=== PATIENT | female | born 1970 | race Caucasian/White ===

== ENCOUNTER 2019-03-14 04:57 | Emergency (ER) | payer SELFPAY ==
[2019-03-14] MEDS ORDERED: HYDROmorphone 1 MG/ML Syringe IVPUSH ONE ×3 (05:06→06:33)
[2019-03-14] MEDS ORDERED: Sodium Chloride 0.9% 10 ML Syringe FLUSH PRN (05:09)
[2019-03-14] MEDS ORDERED: Diphtheria,Pertussis(Acell),Tetanus Vaccine 0.5 ML Syringe IM ONE (05:10)
[2019-03-14] MEDS ORDERED: Amoxicillin/Clavulanate K 875-125 MG Tab PO ONE (05:12)
[2019-03-14] MEDS ORDERED: Ondansetron 4 MG/2 ML SDV IVPUSH ONE ×2 (05:33→06:39)
[2019-03-14 06:45] VITALS: BP 152/87
--- NOTE | 2019-03-14 07:01 | EDM.PDOC ---
ED HPI GENERAL MEDICAL PROBLEM - General Chief Complaint: Skin Complaint Stated Complaint: dog bites Time Seen by Provider: 03/14/19 05:10 Source of Information: Reports: Patient History Limitations: Reports: No Limitations - History of Present Illness INITIAL COMMENTS - FREE TEXT/NARRATIVE: Pt. was attacked by her own dogs this evening. She states that the dog was fighting with another dog and she was trying to get then . She sustained a large laceration to her L breast as well as large puncture wounds to her L forearm and upper arm area. She is not sure of her tetanus status. She states that the dogs have not had their rabies shots. Law enforcement has been contacted and the animals are currently quarantined with plans to put both animals down today and the information regarding the rabies status will be forwarded to ER. Pt. is a smoker. Denies any other pertinent past medical history. She has not had any problems with anesthesia in the past. Generalized Pain Score (Numeric/FACES): 10 - Related Data Allergies Allergy/AdvReac Type Severity Reaction Status Date / Time No Known Allergies Allergy Verified 03/14/19 04:58 Home Meds: Home Meds . [No Known Home Meds] 03/14/19 [History] Past Medical History - Past Surgical History GI Surgical History: Reports: Appendectomy Female Surgical History: Reports: Section Musculoskeletal Surgical History: Reports: Arthroscopic Knee Social & Family History - Tobacco Use Smoking Status *Q: Current Status Unknown ED ROS GENERAL - Review of Systems Review Of Systems: See Below Constitutional: Reports: No Symptoms HEENT: Reports: No Symptoms Respiratory: Reports: No Symptoms Cardiovascular: Reports: No Symptoms Endocrine: Reports: No Symptoms GI/Abdominal: Reports: No Symptoms : Reports: No Symptoms Skin: Reports: No Symptoms Neurological: Reports: No Symptoms Psychiatric: Reports: No Symptoms Hematologic/Lymphatic: Reports: No Symptoms Immunologic: Reports: No Symptoms ED EXAM, SKIN/RASH Exam: See Below Exam Limited By: No Limitations General Appearance: Alert, Anxious Head: Atraumatic, Normocephalic Neck: Normal Inspection, Supple, Non-Tender, Full Range of Motion Respiratory/Chest: Other (superficial scratches to L lateral chest and back. Large partial avulsion/skin tear of L areola measuring 4x3 cm. ) Peripheral Pulses: 4+: Radial (L), Radial (R) GI/Abdominal: Soft, Non-Tender, No Organomegaly, No Distention, No Abnormal Bruit, No Mass, Pelvis Stable (Female) Exam: Deferred Rectal (Female) Exam: Deferred Back Exam: Other (See above. No midline neck or back pain) Extremities: Other (2x1 cm puncture/laceration to L medial elbow. 1 cm laceration to L wrist, 1 cm laceration to forarm, and 1 cm laceration to L posterior upper arm. Numerous smaller superficial lacerations, abrasions, and contusions, all isolated to the L upper extremity.) Neurological: Alert, Oriented, CN II-XII Intact, Normal Cognition, Normal Gait, Normal Reflexes, No Motor/Sensory Deficits Psychiatric: Normal Affect, Normal Mood Skin: Other (see HPI) Course - Vital Signs Last Recorded V/S: Last Vital Signs Temp 35.3 C 03/14/19 06:44 Pulse 69 03/14/19 06:44 Resp 14 03/14/19 06:44 BP 152/87 H 03/14/19 06:44 Pulse Ox 99 03/14/19 06:44 - Orders/Labs/Meds Orders: Active Orders 24 hr Category Date Time Status Vaccines to be Administered [RC] PER UNIT ROUTINE Care 03/14/19 05:10 Active Chest 2V [CR] Stat Exams 03/14/19 05:08 Taken Wrist Comp Min 3V Lt [CR] Stat Exams 03/14/19 05:06 Taken Sodium Chloride 0.9% [Saline Flush] Med 03/14/19 05:09 Active 10 ml FLUSH ASDIRECTED PRN Peripheral IV Insertion Adult [OM.PC] Routine Oth 03/14/19 05:09 Ordered Medication Orders Sodium Chloride (Saline Flush) 10 ml FLUSH ASDIRECTED PRN PRN Reason: Keep Vein Open Meds: Medications Generic Name Dose Route Start Last Admin Trade Name Freq PRN Reason Stop Dose Admin Sodium Chloride 10 ml 03/14/19 05:09 Saline Flush FLUSH ASDIRECTED PRN Keep Vein Open Discontinued Medications Generic Name Dose Route Start Last Admin Trade Name Freq PRN Reason Stop Dose Admin Amoxicillin/Clavulanate Potassium 1 tab 03/14/19 05:12 03/14/19 05:48 Augmentin 875 Mg/125 Mg PO 03/14/19 05:13 1 tab ONETIME ONE Administration Diphtheria/Tetanus/Acell Pertussis 0.5 ml 05/15/19 05:10 03/14/19 05:46 Adacel IM 03/14/19 05:11 0.5 ml .ONCE ONE Administration Hydromorphone HCl 1 mg 03/14/19 05:06 03/14/19 05:09 Dilaudid IVPUSH 03/14/19 05:07 1 mg ONETIME ONE Administration Hydromorphone HCl 1 mg 03/14/19 05:37 03/14/19 05:40 Dilaudid IVPUSH 03/14/19 05:38 1 mg ONETIME ONE Administration Hydromorphone HCl 1 mg 03/14/19 06:33 03/14/19 06:47 Dilaudid IVPUSH 03/14/19 06:34 1 mg ONETIME ONE Administration Ondansetron HCl 4 mg 03/14/19 05:33 03/14/19 05:38 Zofran IVPUSH 03/14/19 05:34 4 mg ONETIME ONE Administration Ondansetron HCl 4 mg 03/14/19 06:39 03/14/19 06:46 Zofran IVPUSH 03/14/19 06:40 4 mg ONETIME ONE Administration - Radiology Interpretation Free Text/Narrative:: radiographs of the L wrist and chest were negative for acute pathology - Re-Assessments/Exams Free Text/Narrative Re-Assessment/Exam: IV access was established. She was given a total of 3 mg of dilaudid IV for pain control. Tdap was updated. The lacerations to the arm were anesthetized with a total of 8 ml of 1% lidocaine to facilitate irrigation. There was areas of devitalized subcutaneous tissue that were excised from the lacerations. They were dressed with telfa and 4x4. The breast laceration was dressed with moist 4x4 and secured with kerlix in anticipation of her undergoing surgical debridement and closure. She was given augmentin 875mg PO and was also given zofran 4mg IV for nausea and vomiting twice. Departure - Departure Time of Disposition: 07:18 Disposition: DC/Tfer to [facility] 02 Clinical Impression: Dog bite - Discharge Information Referrals: PCP,Unobtain [Primary Care Provider] - Forms: ED Department Discharge, Interfacility Transfer EMTALA - Problem List Review Problem List Initiated/Reviewed/Updated: Yes - My Orders Last 24 Hours: My Active Orders 03/14/19 05:06 Wrist Comp Min 3V Lt [CR] Stat 03/14/19 05:08 Chest 2V [CR] Stat 03/14/19 05:09 Sodium Chloride 0.9% [Saline Flush] 10 ml FLUSH ASDIRECTED PRN Peripheral IV Insertion Adult [OM.PC] Routine 03/14/19 05:10 Vaccines to be Administered [RC] PER UNIT ROUTINE - Assessment/Plan Last 24 Hours: My Active Orders 03/14/19 05:06 Wrist Comp Min 3V Lt [CR] Stat 03/14/19 05:08 Chest 2V [CR] Stat 03/14/19 05:09 Sodium Chloride 0.9% [Saline Flush] 10 ml FLUSH ASDIRECTED PRN Peripheral IV Insertion Adult [OM.PC] Routine 03/14/19 05:10 Vaccines to be Administered [RC] PER UNIT ROUTINE Plan: Pt. will be transported via private vehicle to [facility]. Dr. Marshall from plastic surgery accepts the patient in transfer. She was advised to not eat or drink. She has someone who will be driving her to [place].
--- NOTE | 2019-03-14 08:13 | CR ---
[id number] RAD/RAD Wrist Left 3V Min EXAM: LEFT WRIST 3 VIEWS INDICATION: Dogbite. COMPARISON: None. DISCUSSION: There is soft tissue swelling and gas in the distal forearm compatible with laceration. No radiopaque foreign body, fracture or other osseous abnormality is identified. Mild radiocarpal, triscaphe and first carpal metacarpal osteoarthritis. IMPRESSION: 1. Soft tissue gas in the distal forearm. No radiopaque foreign body or fracture is identified. Bronson Suresh MD 03/14/19 0811 Thank you for allowing us to participate in the care of your patient.
--- NOTE | 2019-03-14 08:20 | CR ---
[id number] RAD/RAD Chest PA And Lateral EXAM: FRONTAL AND LATERAL CHEST INDICATION: Dogbite. COMPARISON: None. DISCUSSION: Lungs are mildly hyperinflated, but clear. The heart is normal in size. There are chronic appearing bilateral rib fractures. IMPRESSION: 1. Negative exam. Bronson Suresh MD 03/14/19 0817 Thank you for allowing us to participate in the care of your patient.
== END 2019-03-14 06:55 | disposition short-term general hospital (02) ==
LOC: VM.ED 04:57
DX: S51.052A Open bite, left elbow, initial encounter (principal); S61.552A Open bite of left wrist, initial encounter; S51.852A Open bite of left forearm, initial encounter; S41.152A Open bite of left upper arm, initial encounter; W54.0XXA Bitten by dog, initial encounter; S30.810A Abrasion of lower back and pelvis, initial encounter; S20.312A Abrasion of left front wall of thorax, initial encounter; S21.012A Laceration without foreign body of left breast, initial encounter; Z23 Encounter for immunization
CPT/HCPCS: 71046; 73110-LT; 90471; 90715; 96374; 96375; 96376; 99284-25; A9270-GY; J1170; J2405

== ENCOUNTER 2020-09-03 17:53 | Observation (INO) | payer SELFPAY ==
[2020-09-03] MEDS ORDERED: Diltiazem 50 MG/10 ML SDV IVPUSH ONE ×2 (18:46→20:02)
[2020-09-03] MEDS ORDERED: Sodium Chloride 0.9% 10 ML Syringe FLUSH PRN (18:46)
--- NOTE | 2020-09-03 18:47 | EDM.PDOC ---
ED HPI GENERAL MEDICAL PROBLEM - General Stated Complaint: racing heart rate. Time Seen by Provider: 09/03/20 18:30 Source of Information: Reports: Patient History Limitations: Reports: No Limitations - History of Present Illness INITIAL COMMENTS - FREE TEXT/NARRATIVE: Patient comes emergency department today with her with complaints of racing heart sensation cough congestion. This patient has had a longstanding history of shortness of breath cough and tension. Over the past couple of weeks she has had increasing congestion and shortness of breath. She has quite a bit of thick sputum that she is unable to expel. Her fever is subjective and she never checked it. She is a long-term smoker of about 1 pack a day for the last 40 years. She has been using her family members Symbicort and nebulizer with some improvement of her shortness of breath and cough. Over the past day or so she has had a racing heart sensation or feels like her heart is just pulling away and fluttering. She has had no pain in her chest. No tightness in her chest. No weakness dizziness lightheadedness. No syncope. No abdominal pain. She has had some nausea but only when she eats and she vomits. She only eats about a half a sandwich a day. Every time that she eats she starts to cough and congested and spit it out. He has no hematuria dysuria or urinary frequency. No black or tarry stools. The patient is a daily alcohol drinker who relates that she drinks "1 drink" daily. - Related Data Allergies Allergy/AdvReac Type Severity Reaction Status Date / Time No Known Allergies Allergy Verified 09/03/20 22:48 Home Meds: Home Meds Albuterol [Ventolin HFA] 2 puff INH Q4H PRN #1 puff 09/04/20 [Rx] Azithromycin 250 mg PO DAILY #4 tablet 09/04/20 [Rx] LORazepam [Ativan] 0.5 mg PO TID PRN #20 tablet 09/04/20 [Rx] Magnesium Oxide 400 mg PO DAILY #5 tablet 09/04/20 [Rx] Potassium Chloride 20 meq PO BID #10 tablet.er 09/04/20 [Rx] Past Medical History - Past Surgical History GI Surgical History: Reports: Appendectomy Female Surgical History: Reports: Section Musculoskeletal Surgical History: Reports: Arthroscopic Knee ED ROS GENERAL - Review of Systems Review Of Systems: Comprehensive ROS is negative, except as noted in HPI. ED EXAM, GENERAL - Physical Exam Exam: See Below Exam Limited By: No Limitations General Appearance: Alert, WD/WN, No Apparent Distress, Anxious Eye Exam: Bilateral Eye: EOMI, PERRL Ears: Normal External Exam, Normal TMs Ear Exam: Bilateral Ear: TM Dull Nose: Normal Inspection, Normal Mucosa, No Blood Throat/Mouth: Normal Inspection, Normal Lips, Normal Teeth, Normal Voice, Perioral Cyanosis Head: Atraumatic Neck: Normal Inspection, Supple, Non-Tender, Full Range of Motion Respiratory/Chest: No Respiratory Distress, Lungs Clear, No Accessory Muscle Use, Chest Non-Tender, Decreased Breath Sounds Cardiovascular: Normal Peripheral Pulses, Tachycardia (140s-150s), Irregularly Irregular Peripheral Pulses: 2+: Radial (L), Radial (R), Posterior Tibial (L), Posterior Tibial (R), Dorsalis Pedis (L), Dorsalis Pedis (R) GI/Abdominal: Normal Bowel Sounds, Soft, Non-Tender (Female) Exam: Deferred Rectal (Female) Exam: Deferred Back Exam: Normal Inspection, Full Range of Motion Extremities: Normal Inspection, Normal Range of Motion, Non-Tender, Normal Capillary Refill Neurological: Alert, Oriented, CN II-XII Intact, Normal Cognition, Normal Gait, No Motor/Sensory Deficits Psychiatric: Anxious Skin Exam: Dry, Intact, No Rash, Cool, Pallor #1 Interpretation EKG Date: 09/03/20 Time: 18:31 Rhythm: A-Fib Rate (Beats/Min): 145 [place]: Normal P-Wave: Variable QRS: Normal ST-T: Normal QT: Normal Comparison: NA - No Prior EKG #2 Interpretation EKG Date: 09/03/20 Time: 19:26 Rhythm: A-Fib Rate (Beats/Min): 92 [place]: Normal P-Wave: Variable QRS: Normal ST-T: Normal QT: Normal #3 Interpretation EKG Date: 09/03/20 Time: 21:26 Rhythm: NSR Rate (Beats/Min): 80 [place]: Normal P-Wave: Present QRS: Normal ST-T: Normal QT: Normal Course - Vital Signs Last Recorded V/S: Last Vital Signs Temp 98.1 F 09/04/20 10:00 Pulse 88 09/04/20 10:00 Resp 16 09/04/20 10:00 BP 143/99 H 09/04/20 10:00 Pulse Ox 97 09/04/20 10:00 - Orders/Labs/Meds Labs: Laboratory Tests 09/03/20 09/03/20 09/03/20 Range/Units 17:58 18:40 18:40 WBC 8.6 (4.0-10.0) x10^3/uL RBC 4.40 (4.00-5.50) x10^6/uL Hgb 14.7 (12.0-16.0) g/dL Hct 42.4 (33.0-47.0) % MCV 96.4 H (78.0-93.0) fL MCH 33.4 H (26.0-32.0) pg MCHC 34.7 (32.0-36.0) g/dL RDW Coeff of Joellen 14.5 (10.0-15.0) % Plt Count 205 (130-400) x10^3/uL Neut % (Auto) 46.6 L (50.0-80.0) % Lymph % (Auto) 40.4 (25.0-50.0) % [place] % (Auto) 10.4 (2.0-11.0) % Eos % (Auto) 2.1 (0.0-4.0) % Baso % (Auto) 0.5 (0.2-1.2) % PT (9.5-12.3) SEC INR (2.0-3.5) APTT (25.6-32.8) SEC Sodium 142 (136-145) mmol/L Potassium 2.9 L* (3.5-5.1) mmol/L Chloride 103 (98-107) mmol/L Carbon Dioxide 21 (21-32) mmol/L Anion Gap 20.9 H (10-20) mmol/L BUN 10 (7-18) mg/dL Creatinine 0.6 (0.55-1.02) mg/dL Est Cr Clr Drug Dosing TNP Estimated GFR (MDRD) > 60 Glucose 81 (74-106) mg/dL Calcium 8.5 (8.5-10.1) mg/dL Corrected Calcium 8.42 L (8.5-10.1) mg/dL Magnesium 1.5 L (1.8-2.4) mg/dL Total Bilirubin 0.5 (0.2-1.0) mg/dL AST 106 H (15-37) U/L ALT 164 H (14-59) U/L Alkaline Phosphatase 64 (46-116) U/L Troponin I < 0.017 (<=0.056) ng/mL Total Protein 7.4 (6.4-8.2) g/dL Albumin 4.1 (3.4-5.0) g/dL Globulin 3.3 Albumin/Globulin Ratio 1.24 TSH, Ultra Sensitive 4.742 H (0.358-3.74) uIU/mL Ethyl Alcohol 260 H (0-3) mg/dL SARS CoV-2 RNA Rapid MOISES Negative (NEGATIVE) 09/03/20 Range/Units 18:40 WBC (4.0-10.0) x10^3/uL RBC (4.00-5.50) x10^6/uL Hgb (12.0-16.0) g/dL Hct (33.0-47.0) % MCV (78.0-93.0) fL MCH (26.0-32.0) pg MCHC (32.0-36.0) g/dL RDW Coeff of Joellen (10.0-15.0) % Plt Count (130-400) x10^3/uL Neut % (Auto) (50.0-80.0) % Lymph % (Auto) (25.0-50.0) % [place] % (Auto) (2.0-11.0) % Eos % (Auto) (0.0-4.0) % Baso % (Auto) (0.2-1.2) % PT 9.6 (9.5-12.3) SEC INR 0.9 L (2.0-3.5) APTT 25.2 L (25.6-32.8) SEC Sodium (136-145) mmol/L Potassium (3.5-5.1) mmol/L Chloride (98-107) mmol/L Carbon Dioxide (21-32) mmol/L Anion Gap (10-20) mmol/L BUN (7-18) mg/dL Creatinine (0.55-1.02) mg/dL Est Cr Clr Drug Dosing Estimated GFR (MDRD) Glucose (74-106) mg/dL Calcium (8.5-10.1) mg/dL Corrected Calcium (8.5-10.1) mg/dL Magnesium (1.8-2.4) mg/dL Total Bilirubin (0.2-1.0) mg/dL AST (15-37) U/L ALT (14-59) U/L Alkaline Phosphatase (46-116) U/L Troponin I (<=0.056) ng/mL Total Protein (6.4-8.2) g/dL Albumin (3.4-5.0) g/dL Globulin Albumin/Globulin Ratio TSH, Ultra Sensitive (0.358-3.74) uIU/mL Ethyl Alcohol (0-3) mg/dL SARS CoV-2 RNA Rapid MOISES (NEGATIVE) Meds: Medications Discontinued Medications Generic Name Dose Route Start Last Admin Trade Name Freq PRN Reason Stop Dose Admin Albuterol/Ipratropium 3 ml 09/04/20 10:24 09/04/20 11:40 Duoneb 3.0-0.5 Mg/3 Ml NEB 09/04/20 10:25 3 ml ONETIME ONE Administration Azithromycin 500 mg 09/04/20 10:25 09/04/20 11:38 Zithromax PO 09/04/20 10:26 500 mg ONETIME ONE Administration Multivitamins/Minerals 1 tab/ 0 tab 09/03/20 22:00 09/04/20 08:26 Thiamine HCl 100 mg/ Folic PO 1 each Acid 1 mg/ Magnesium Oxide 400 DAILY YENIFER Administration mg Diltiazem HCl 20 mg 09/03/20 18:46 09/03/20 19:03 Cardizem IVPUSH 09/03/20 18:47 20 mg ONETIME ONE Administration Diltiazem HCl 25 mg 09/03/20 20:02 09/03/20 21:09 Cardizem IVPUSH 09/03/20 20:03 Not Given ONETIME ONE Lactated Ringer's 1,000 mls @ 999 mls/hr 09/03/20 19:13 09/03/20 19:18 Ringers, Lactated IV 09/03/20 20:13 999 mls/hr ONETIME ONE Administration Diltiazem HCl 125 mg/ Sodium 125 mls @ 5 mls/hr 09/03/20 20:15 Chloride IV TITRATE YENIFER Protocol 5 MG/HR Lorazepam 0 mg 09/03/20 22:51 09/04/20 00:07 Ativan PO 1 mg ASDIRECTED PRN Administration Withdrawal Symptoms Protocol Magnesium Oxide 400 mg 09/03/20 21:58 09/03/20 23:34 Magnesium Oxide PO 09/03/20 21:59 400 mg ONETIME ONE Administration Magnesium Oxide 400 mg 09/04/20 08:00 09/04/20 08:26 Magnesium Oxide PO 400 mg DAILY YENIFER Administration Magnesium Sulfate 2 gm 09/03/20 20:18 09/03/20 21:03 Magnesium Sulfate In Water Premix IV 09/03/20 20:19 2 gm NOW STA Administration Nicotine 21 mg 09/03/20 21:49 09/03/20 23:33 Habitrol TRDERM 09/03/20 21:50 21 mg ONETIME ONE Administration Potassium Chloride 40 meq 09/03/20 19:47 09/03/20 19:53 Potassium Chloride Solution PO 09/03/20 19:48 40 meq ONETIME ONE Administration Potassium Chloride 20 meq 09/03/20 23:30 09/04/20 08:25 Potassium Chloride Solution PO 09/04/20 03:31 Not Given Q2H YENIFER Potassium Chloride 20 meq 09/04/20 08:00 09/04/20 08:26 Potassium Chloride Solution PO 09/04/20 08:01 20 meq ONETIME ONE Administration Potassium Chloride 20 meq 09/04/20 10:23 09/04/20 11:39 Klor-Con 10 PO 09/04/20 10:24 20 meq ONETIME ONE Administration Sodium Chloride 10 ml 09/03/20 18:46 Saline Flush FLUSH ASDIRECTED PRN Keep Vein Open - Radiology Interpretation Free Text/Narrative:: CXR per radiology negative for acute findings. - Re-Assessments/Exams Free Text/Narrative Re-Assessment/Exam: COVID test negative. An IV was established and labs were drawn. EKG shows new onset of atrial fibrillation with rapid ventricular response and rate to the 140s. 20 mg of Cardizem was given slow IV push. The patient have improvement of her heart rate following the Cardizem bolus. She stated he is in atrial fibrillation but her heart rate was in the 80s to 90s. Her blood pressure was somewhat labile was a systolic around 103. She was given a liter of LR. I am well aware of this patient's chronic alcohol abuse. Has taken care of her who is a chronic alcoholic and relates that she is under reporting her alcohol usage she drinks quite heavily on a daily basis which is very similar to the patient's husbands alcoholic history as well. The is at the bedside. Laboratory evaluation shows a potassium of 2.9, magnesium of 1.5, AST 106, ALT 164, total bilirubin 0.5. Troponin is negative. Alcohol is 260. Patient was given 40 mEq of oral liquid potassium. Magnesium 2 g IV piggyback. She continued in atrial fibrillation and had recurrence of her A. fib with RVR with a heart rate of 140. I returned to the room myself to administer 25 mg of Cardizem IV push and placed the patient on a bolus but while I was preparing to do so she suddenly converted into normal sinus rhythms of the 70s and 80s. Her palpitations racing heart sensation has resolved. Although patient states that she only had 1 drink today her alcohol is 260. She does have some elevated liver enzymes without any elevation of her total bilirubin. She has quite a bit of electrolyte abnormality and derangement. I wonder if she does not have some type of sequelae of holiday heart type syndrome. Due to her chronic alcohol abuse. She has had a history of long-term alcoholism and did have a year and a half where she was sober but she has been drinking more heavily lately since he started drinking again with her . Initially patient does not want to stay in the hospital and would like to go home. I was able to discuss my concerns with a reoccurrence of atrial fibrillation as well as electrolyte management to ensure that she has an appropriate rhythm. She does agree to hospitalization at this time for observation. I discussed laboratory evaluation of my concerns with the patient she is comfortable with this plan her questions are answered. Departure - Departure Time of Disposition: 21:00 Disposition: Refer to Observation Clinical Impression: Atrial fibrillation with rapid ventricular response, Hypomagnesemia, Tobacco dependence, Hypokalemia, Elevated liver enzymes Acute alcohol intoxication with alcoholism Qualifiers: Complication of substance-induced condition: uncomplicated Qualified Code(s): F10.220 - Alcohol dependence with intoxication, uncomplicated - Problem List & Annotations (1) Acute alcohol intoxication with alcoholism SNOMED Code(s): 169664163 Code(s): F10.229 - ALCOHOL DEPENDENCE WITH INTOXICATION, UNSPECIFIED Status: Acute Qualifiers: Complication of substance-induced condition: uncomplicated Qualified Code(s): F10.220 - Alcohol dependence with intoxication, uncomplicated (2) Atrial fibrillation with RVR SNOMED Code(s): 747664277087449 Code(s): I48.91 - UNSPECIFIED ATRIAL FIBRILLATION Status: Acute (3) Elevated liver enzymes SNOMED Code(s): 432914257 Code(s): R74.8 - ABNORMAL LEVELS OF OTHER SERUM ENZYMES Status: Acute (4) Hypokalemia SNOMED Code(s): 86310771 Code(s): E87.6 - HYPOKALEMIA Status: Acute (5) Hypomagnesemia SNOMED Code(s): 698041911 Code(s): E83.42 - HYPOMAGNESEMIA Status: Acute (6) Tobacco dependence SNOMED Code(s): 76763342 Code(s): F17.200 - NICOTINE DEPENDENCE, UNSPECIFIED, UNCOMPLICATED Status: Acute - Problem List Review Problem List Initiated/Reviewed/Updated: Yes - Assessment/Plan Admission H&P: Please use this note as an admission H&P Assessment:: Assessment/Plan 1. Atrial fibrillation with rapid ventricular response. Question holiday heart type syndrome. She did have conversion of the atrial fibrillation in the emergency department following administration of Cardizem. The atrial fibrillation could also be caused by her electrolyte derangement with her hypokalemia and hypomagnesemia as well as chronic alcohol abuse. We will monitor her on telemetry throughout the night under observation stay she is converted on her own. She is normal troponin. 2. Hypokalemia. Most likely due to her chronic alcohol abuse and poor diet but really any food intake. She was initially given 40 mEq of oral liquid potassium in the emergency department. We will give her 20 mEq of potassium every 2 hours for the next 3 doses and recheck her potassium in the morning. We will also watch meals while she is in the observation stay in the hospital. 3. Hypomagnesemia. This is most likely due to her chronic alcohol abuse and poor diet and very little food intake. She was initially given 2 g IV piggyback of magnesium sulfate in the emergency department. We will give magnesium oxide orally and and give her magnesium oxide daily. We will push her diet for improvement. We will recheck her labs in the morning. 4. Acute alcohol intoxication in the presence of alcoholism. Patient's alcohol currently is 260. I have concerns for alcohol withdrawal with her being in the hospital she is interested in quitting drinking she does not want any assistance at this time as she needs her 's to come to the same conclusion. She was given a banana bag in the emergency department. We will continue her with oral Daily banana packet as well. We will place her on CIWA scoring and watch for alcohol withdrawal. I wonder if an aspect of her poor appetite is not her chronic alcoholism. 5. Elevated liver enzymes. AST 106 ALT 164 with a normal total and 0.5. Most likely due to her chronic alcohol abuse. She has no abdominal pain or concern for any other acute pathology. We will trend her labs daily. 6. Tobacco dependence. We will place her on a Habitrol 21 patch daily. VTE: Short stay risk fats. Sepsis: No identified infection at this time. We will continue to monitor. CODE STATUS full level 1. Plan admit observation overnight with telemetry to observe for recurrence of atrial fibrillation. Aggressive hydration as well as electrolyte replacement. He does have some concerns of financial compensation she does not have any insurance. I will have social work see the patient present with her with concerns of insurance and also assist with alcohol treatment upon discharge.
[2020-09-03] MEDS ORDERED: Lactated Ringers 1,000 ML IV ONE (19:13)
--- NOTE | 2020-09-03 19:13 | CR ---
[id number] RAD/RAD Chest PA or AP 1V EXAM: RAD Chest PA or AP 1V INDICATION: cough, sob COMPARISON: March 14, 2019. DISCUSSION: Cardiomediastinal silhouette is normal in size and contour. No infiltrate, effusion, pneumothorax, or edema. IMPRESSION: No acute cardiopulmonary abnormality. Chance Mckeon DO 09/03/20 1912 Thank you for allowing us to participate in the care of your patient.
[2020-09-03 19:20] LABS: PTT,PARTIAL THROMBOPLSTIN TIME 25.2 SEC (25.6-32.8)
[2020-09-03 19:37] LABS: CHLORIDE,CL 103 mmol/L (98-107); SODIUM,NA 142 mmol/L (136-145)
[2020-09-03 19:42] LABS: ANION GAP 20.9 mmol/L (10-20)
[2020-09-03] MEDS ORDERED: Potassium Chloride 10% 20 MEQ/15 ML Soln 15 ML UD Cup PO ONE (19:47)
[2020-09-03] MEDS ORDERED: Diltiazem 125 MG in Sodium Chloride 0.9% 100 ML IV SCH (20:15)
[2020-09-03] MEDS ORDERED: Magnesium Sulfate/Water 2 GM/50 ML Premix Bag IV STA (20:18)
[2020-09-03] MEDS ORDERED: Nicotine 21 MG/24 Hr Patch TRDERM ONE (21:49)
[2020-09-03] MEDS ORDERED: Magnesium Oxide 400 MG Tab PO ONE (21:58)
[2020-09-03] MEDS ORDERED: LORazepam 1 MG Tab PO PRN (22:51)
[2020-09-03] MEDS: Multivitamins w-Iron/Ca/FA/Min 1 TAB, Thiamine 100 MG, Folic Acid 1 MG, Magnesium Oxide... PO SCH ×6 (23:34→23:36)
[2020-09-03] MEDS: Potassium Chloride 10% 20 MEQ/15 ML Soln 15 ML UD Cup PO SCH (23:38)
[2020-09-04] MEDS: Potassium Chloride 10% 20 MEQ/15 ML Soln 15 ML UD Cup PO SCH ×2 (04:41→08:25)
[2020-09-04 07:25] LABS: CHLORIDE,CL 103 mmol/L (98-107); SODIUM,NA 138 mmol/L (136-145)
[2020-09-04 07:26] LABS: ANION GAP 13.1 mmol/L (10-20)
[2020-09-04] MEDS ORDERED: Potassium Chloride 10% 20 MEQ/15 ML Soln 15 ML UD Cup PO ONE (08:00)
[2020-09-04] MEDS ORDERED: Magnesium Oxide 400 MG Tab PO SCH (08:00)
[2020-09-04] MEDS: Multivitamins w-Iron/Ca/FA/Min 1 TAB, Thiamine 100 MG, Folic Acid 1 MG, Magnesium Oxide... PO SCH ×3 (08:26)
[2020-09-04 10:07] VITALS: BP 143/99; PULSE 88
[2020-09-04] MEDS ORDERED: Potassium Chloride 10 MEQ Tab.ER PO ONE (10:23)
[2020-09-04] MEDS ORDERED: Albuterol/Ipratropium 3.0-0.5 MG/3 ML Neb Soln NEB ONE (10:24)
[2020-09-04] MEDS ORDERED: Azithromycin 250 MG Tab PO ONE (10:25)
--- NOTE | 2020-09-04 10:55 | PCM.DCSUM1 ---
Discharge Summary - Hospital Course Free Text/Narrative:: This patient appears clinically much improved. Her potassium is 4.1 today. Her magnesium is 2.2. AST 109 ALT 150. She has not had any recurrence of atrial fibrillation with rapid ventricular response rhythm. She feels quite bit better. I had very extensive and long conversation about my concerns of her chronic alcohol abuse and misuse. He finally realized that now that is affecting her health menjivar not only mentally and physically and needs to quit drinking. She is interested in alcohol treatment not at this time until she can get her to agree as well. Would like her foster care social worker to work with her today on this although she is not available. I do have some concerns for her cough and congestion today but no underlying diagnosis of COPD and there is no evidence of COPD on her chest x-ray although with her long-term history probably have early development of COPD. She was given a DuoNeb while in the hospital with quite a bit of improvement of her cough and congestion. We will not use any steroids at this time as she is not overtly distressed. She was placed on azithromycin for bronchitis as well or for the anti-inflammatory effect. An appointment was made for her to follow-up in the clinic in the next week to recheck her otherwise. I will discharge her home today with some Ativan to help with alcohol withdrawal. I would also like her to contact the [facility] [place] discussed treatment options for her alcoholism. - Discharge Data Discharge Date: 09/04/20 Discharge Disposition: Home, Self-Care 01 Condition: Good - Referral to Home Health Primary Care Physician: PCP None - Discharge Diagnosis/Problem(s) (1) Acute alcohol intoxication with alcoholism SNOMED Code(s): 739099938 ICD Code: F10.229 - ALCOHOL DEPENDENCE WITH INTOXICATION, UNSPECIFIED Status: Acute Qualifiers: Complication of substance-induced condition: uncomplicated Qualified Code(s): F10.220 - Alcohol dependence with intoxication, uncomplicated (2) Hypokalemia SNOMED Code(s): 34373517 ICD Code: E87.6 - HYPOKALEMIA Status: Acute (3) Hypomagnesemia SNOMED Code(s): 620329725 ICD Code: E83.42 - HYPOMAGNESEMIA Status: Acute (4) Bronchitis SNOMED Code(s): 86714283 ICD Code: J40 - BRONCHITIS, NOT SPECIFIED ACUTE OR CHRONIC Status: Acute (5) Elevated liver enzymes SNOMED Code(s): 088492622 ICD Code: R74.8 - ABNORMAL LEVELS OF OTHER SERUM ENZYMES Status: Acute (6) Tobacco dependence SNOMED Code(s): 74097741 ICD Code: F17.200 - NICOTINE DEPENDENCE, UNSPECIFIED, UNCOMPLICATED Status: Acute (7) Atrial fibrillation with RVR SNOMED Code(s): 550174183861749 ICD Code: I48.91 - UNSPECIFIED ATRIAL FIBRILLATION Status: Acute - Patient Summary/Data Consults: Consultations 09/03/20 22:46 Consult to Case Management/Correctional Supervising Cook [CONS] Routine Hospital Course: The patient was admitted into the hospital under observation for acute new onset atrial fibrillation with rapid ventricular response concerning with her history of alcoholism for holiday heart type syndrome. She received 1 dose of Cardizem 20 mg in the emergency department with subsequent spontaneous conversion to normal sinus rhythm. He was noted to be quite hypokalemic as well as hypomagnesemic elevated enzymes most likely due to chronic alcohol abuse. He was currently intoxicated in the emergency department with an alcohol of 2 she was monitored closely over the night in the hospital. She had no recurrence of her atrial fibrillation. She was aggressively managed with oral potassium as well as IV magnesium and oral magnesium. She was placed on CIWA scoring and no delirium or tremors and only received 1 dose of Ativan. She had a nicotine patch for her tobacco dependence. He was also hydrated throughout the night with IV fluid. Was able to eat in the morning which is kind of new for her simply does not eat much. I see component of her inability to eat with her chronic alcoholism. She does not really relate any mild gastritis things. Today she clearly has some bronchitis type symptoms. She does have sensory of smoking in the not diagnosed COPD. She was started on Zithromax and nebulizers. We also had an extensive conversation about the chronic alcoholism that is rather than reported by this patient. She is interested in quitting drinking at this time. We will discharge her home with the plan following up with the [facility] [place] for assistance in her alcohol treatment. I will give her some Ativan 0.5 mg p.o. 3 times daily #20. She will be placed on K-Dur tablets 20 mEq p.o. twice daily for the next 5 days. Magnesium oxide 400 mg p.o. daily for the next 5 days. He also be placed on albuterol and Zithromax. An appointment was made for her prior to discharge to be followed up with in the clinic. The patient is aware of when to return with any worsening symptoms severe alcohol withdrawal or recurrence of her atrial fibrillation or heart fluttering. She is comfortable with this plan and her questions are answered. - Patient Instructions Diet: Regular Diet as Tolerated Other/Special Instructions: Stop drinking alcohol. See [facility] [place] when able to get assistance with alcohol intoxication. [phone]. Please contact Pamela our fruit i farmworker when able about financial concerns as well as assi stance with alcohol usage. [phone]. Drink plenty of fluids especially electrolyte containing materials like gatorade and or powerade. Make sure and eat small frequent meals. Albuterol inhaler, 2 puffs every 4hrs as needed for cough Shortness of breath. RX sent to [facility]. Azithromycin, 1 tablet daily for the next 4 days. Start 09/05/20. Rx to [facility]. Ativan 0.5mg by mouth three times a day as needed for alcohol withdrawal. Do not take if you have been drinking. Caution sedation no driving either while taking. Magnesium, 1 tablet daily for the next 5 days. Rx to [facility]. Potassium 1 tablet twice daily for the next 5 days. Rx to [facility]. Follow up with Dr. Fredy Herrera [facility] in 5 days. - Discharge Plan *PRESCRIPTION DRUG MONITORING PROGRAM REVIEWED*: Not Applicable *COPY OF PRESCRIPTION DRUG MONITORING REPORT IN PATIENT PAIGE: Not Applicable Prescriptions/Med Rec: LORazepam [Ativan] 0.5 mg PO TID PRN #20 tablet PRN Reason: Withdrawal Symptoms Azithromycin 250 mg PO DAILY #4 tablet Magnesium Oxide 400 mg PO DAILY #5 tablet Potassium Chloride 20 meq PO BID #10 tablet.er Albuterol [Ventolin HFA] 2 puff INH Q4H PRN #1 puff PRN Reason: Shortness Of Breath Home Medications: Home Meds Albuterol [Ventolin HFA] 2 puff INH Q4H PRN #1 puff 09/04/20 [Rx] Azithromycin 250 mg PO DAILY #4 tablet 09/04/20 [Rx] LORazepam [Ativan] 0.5 mg PO TID PRN #20 tablet 09/04/20 [Rx] Magnesium Oxide 400 mg PO DAILY #5 tablet 09/04/20 [Rx] Potassium Chloride 20 meq PO BID #10 tablet.er 09/04/20 [Rx] Forms: ED Department Discharge Referrals: PCP,None [Primary Care Provider] - 09/09/20 (Follow-up appt with Dr. Linnea Daniel MD [facility] 09/09/20 at 10:00 am [phone]) - Discharge Summary/Plan Comment DC Time >30 min.: Yes - General Info Date of Service: 09/04/20 Admission Dx/Problem (Free Text: Atrial fibrillation with rapid ventricular response question: A heart type syndrome. Hypokalemia Hypomagnesemia Elevated liver enzymes Tobacco dependence. Acute alcohol intoxication includes the following. Subjective Update: The patient slept well throughout the night. He had no racing heart sensation is quite a bit more thick and productive increased redness when she is breathing. He also noticed some wheezing. No nausea abd pain vomiting. No withdrawal type symptoms. No cravings for alcohol. The nicotene patch is working well for her. She has a good appetite and actually able to eat her breakfast without vomiting. She does relate that she does really feel much better. Functional Status: Reports: Pain Controlled - Patient Data Vitals - Most Recent: Last Vital Signs Temp 98.1 F 09/04/20 10:00 Pulse 88 09/04/20 10:00 Resp 16 09/04/20 10:00 BP 143/99 H 09/04/20 10:00 Pulse Ox 97 09/04/20 10:00 Weight - Most Recent: 143 lb 12.8 oz I&O - Last 24 hours: Intake & Output 09/03/20 09/04/20 09/04/20 22:59 06:59 14:59 Intake Total 120 Balance 120 Lab Results - Last 24 hrs: Laboratory Results - last 24 hr 09/03/20 09/03/20 09/03/20 Range/Units 17:58 18:40 18:40 WBC 8.6 (4.0-10.0) x10^3/uL RBC 4.40 (4.00-5.50) x10^6/uL Hgb 14.7 (12.0-16.0) g/dL Hct 42.4 (33.0-47.0) % MCV 96.4 H (78.0-93.0) fL MCH 33.4 H (26.0-32.0) pg MCHC 34.7 (32.0-36.0) g/dL RDW Coeff of Joellen 14.5 (10.0-15.0) % Plt Count 205 (130-400) x10^3/uL Neut % (Auto) 46.6 L (50.0-80.0) % Lymph % (Auto) 40.4 (25.0-50.0) % [place] % (Auto) 10.4 (2.0-11.0) % Eos % (Auto) 2.1 (0.0-4.0) % Baso % (Auto) 0.5 (0.2-1.2) % PT (9.5-12.3) SEC INR (2.0-3.5) APTT (25.6-32.8) SEC Sodium 142 (136-145) mmol/L Potassium 2.9 L* (3.5-5.1) mmol/L Chloride 103 (98-107) mmol/L Carbon Dioxide 21 (21-32) mmol/L Anion Gap 20.9 H (10-20) mmol/L BUN 10 (7-18) mg/dL Creatinine 0.6 (0.55-1.02) mg/dL Est Cr Clr Drug Dosing TNP Estimated GFR (MDRD) > 60 Glucose 81 (74-106) mg/dL Calcium 8.5 (8.5-10.1) mg/dL Corrected Calcium 8.42 L (8.5-10.1) mg/dL Magnesium 1.5 L (1.8-2.4) mg/dL Total Bilirubin 0.5 (0.2-1.0) mg/dL AST 106 H (15-37) U/L ALT 164 H (14-59) U/L Alkaline Phosphatase 64 (46-116) U/L Troponin I < 0.017 (<=0.056) ng/mL Total Protein 7.4 (6.4-8.2) g/dL Albumin 4.1 (3.4-5.0) g/dL Globulin 3.3 Albumin/Globulin Ratio 1.24 TSH, Ultra Sensitive 4.742 H (0.358-3.74) uIU/mL Ethyl Alcohol 260 H (0-3) mg/dL SARS CoV-2 RNA Rapid MOISES Negative (NEGATIVE) 09/03/20 09/04/20 09/04/20 Range/Units 18:40 06:29 06:29 WBC 5.1 (4.0-10.0) x10^3/uL RBC 3.92 L (4.00-5.50) x10^6/uL Hgb 13.2 D (12.0-16.0) g/dL Hct 38.2 (33.0-47.0) % MCV 97.4 H (78.0-93.0) fL MCH 33.7 H (26.0-32.0) pg MCHC 34.6 (32.0-36.0) g/dL RDW Coeff of Joellen 14.5 (10.0-15.0) % Plt Count 198 (130-400) x10^3/uL Neut % (Auto) 42.2 L (50.0-80.0) % Lymph % (Auto) 44.2 (25.0-50.0) % [place] % (Auto) 9.5 (2.0-11.0) % Eos % (Auto) 3.5 (0.0-4.0) % Baso % (Auto) 0.6 (0.2-1.2) % PT 9.6 (9.5-12.3) SEC INR 0.9 L (2.0-3.5) APTT 25.2 L (25.6-32.8) SEC Sodium 138 (136-145) mmol/L Potassium 4.1 (3.5-5.1) mmol/L Chloride 103 (98-107) mmol/L Carbon Dioxide 26 (21-32) mmol/L Anion Gap 13.1 (10-20) mmol/L BUN 6 L (7-18) mg/dL Creatinine 0.7 (0.55-1.02) mg/dL Est Cr Clr Drug Dosing 75.20 Estimated GFR (MDRD) > 60 Glucose 98 (74-106) mg/dL Calcium 8.2 L (8.5-10.1) mg/dL Corrected Calcium 8.44 L (8.5-10.1) mg/dL Magnesium 2.2 (1.8-2.4) mg/dL Total Bilirubin 0.8 (0.2-1.0) mg/dL AST 109 H (15-37) U/L ALT 150 H (14-59) U/L Alkaline Phosphatase 58 (46-116) U/L Troponin I (<=0.056) ng/mL Total Protein 6.7 (6.4-8.2) g/dL Albumin 3.7 (3.4-5.0) g/dL Globulin 3.0 Albumin/Globulin Ratio 1.23 TSH, Ultra Sensitive (0.358-3.74) uIU/mL Ethyl Alcohol (0-3) mg/dL SARS CoV-2 RNA Rapid MOISES (NEGATIVE) Med Orders - Current: Current Medications Multivitamins/Minerals 1 tab/Thiamine HCl 100 mg/ Folic Acid 1 mg/ Magnesium Oxide 400 mg 0 tab PO DAILY [facility] Last Admin: 09/04/20 08:26 Dose: 1 each Documented by: Lorazepam (Ativan) 0 mg PO ASDIRECTED PRN; Protocol PRN Reason: Withdrawal Symptoms Last Admin: 09/04/20 00:07 Dose: 1 mg Documented by: Magnesium Oxide (Magnesium Oxide) 400 mg PO DAILY [facility] Last Admin: 09/04/20 08:26 Dose: 400 mg Documented by: Sodium Chloride (Saline Flush) 10 ml FLUSH ASDIRECTED PRN PRN Reason: Keep Vein Open Discontinued Medications Albuterol/Ipratropium (Duoneb 3.0-0.5 Mg/3 Ml) 3 ml NEB ONETIME ONE Stop: 09/04/20 10:25 Azithromycin (Zithromax) 500 mg PO ONETIME ONE Stop: 09/04/20 10:26 Diltiazem HCl (Cardizem) 20 mg IVPUSH ONETIME ONE Stop: 09/03/20 18:47 Last Admin: 09/03/20 19:03 Dose: 20 mg Documented by: Diltiazem HCl (Cardizem) 25 mg IVPUSH ONETIME ONE Stop: 09/03/20 20:03 Last Admin: 09/03/20 21:09 Dose: Not Given Documented by: Lactated Ringer's (Ringers, Lactated) 1,000 mls @ 999 mls/hr IV ONETIME ONE Stop: 09/03/20 20:13 Last Admin: 09/03/20 19:18 Dose: 999 mls/hr Documented by: Diltiazem HCl 125 mg/ Sodium (Chloride) 125 mls @ 5 mls/hr IV TITRATE YENIFER; Protocol Magnesium Oxide (Magnesium Oxide) 400 mg PO ONETIME ONE Stop: 09/03/20 21:59 Last Admin: 09/03/20 23:34 Dose: 400 mg Documented by: Magnesium Sulfate (Magnesium Sulfate In Water Premix) 2 gm IV NOW STA Stop: 09/03/20 20:19 Last Admin: 09/03/20 21:03 Dose: 2 gm Documented by: Nicotine (Habitrol) 21 mg TRDERM ONETIME ONE Stop: 09/03/20 21:50 Last Admin: 09/03/20 23:33 Dose: 21 mg Documented by: Potassium Chloride (Potassium Chloride Solution) 40 meq PO ONETIME ONE Stop: 09/03/20 19:48 Last Admin: 09/03/20 19:53 Dose: 40 meq Documented by: Potassium Chloride (Potassium Chloride Solution) 20 meq PO Q2H YENIFER Stop: 09/04/20 03:31 Last Admin: 09/04/20 08:25 Dose: Not Given Documented by: Potassium Chloride (Potassium Chloride Solution) 20 meq PO ONETIME ONE Stop: 09/04/20 08:01 Last Admin: 09/04/20 08:26 Dose: 20 meq Documented by: Potassium Chloride (Klor-Con 10) 20 meq PO ONETIME ONE Stop: 09/04/20 10:24 Comments:: Immediately after the room this patient really appears to be looking and feel much better. Her skin is pink warm and dry and moist. She is smiling she is happy she is interactive. This is a very different patient and I had seen them when she was hospitalized last night. She relates that she feels so much better. I see no signs of withdrawal delirium or tremors. She had received 1 dose last morning for a minimally elevated CIWA score. - Exam General: Reports: Alert, Oriented HEENT: Reports: Pupils Equal, Pupils Reactive, EOMI, Mucous Membr. Moist/[place] Neck: Reports: Supple Lungs: Reports: Decreased Breath Sounds, Rhonchi (Harsh thick rhonchi in the central bronchus that clears with coughing.), Wheezing (Mild inspiratory and expiratory wheezing bilaterally. No increased work of breathing. No labored. No tachypnea.). Denies: Crackles, Rales, Stridor Cardiovascular: Reports: Regular Rate, Regular Rhythm GI/Abdominal Exam: Normal Bowel Sounds, Soft, Non-Tender (Female) Exam: Deferred Rectal (Female) Exam: Deferred Back Exam: Reports: Normal Inspection, Full Range of Motion Extremities: Normal Inspection, Normal Range of Motion, Non-Tender, No Pedal Edema, Normal Capillary Refill Skin: Reports: Warm, Dry, Intact Neurological: Reports: No New Focal Deficit Psy/Mental Status: Reports: Alert, Normal Affect, Normal Mood
== END 2020-09-04 13:00 | disposition home or self-care (01) ==
LOC: VM.ED 17:53 → VM.MS 21:26
PROVIDERS: ADMIT Nurse Practitioner Family; ATTEND Nurse Practitioner Family
DX: F10.229 Alcohol dependence with intoxication, unspecified (principal); E87.6 Hypokalemia; E83.42 Hypomagnesemia; J40 Bronchitis, not specified as acute or chronic; R74.8 Abnormal levels of other serum enzymes; I48.91 Unspecified atrial fibrillation; F17.210 Nicotine dependence, cigarettes, uncomplicated; Z20.828 Contact with and (suspected) exposure to other viral communicable diseases; Y90.0 Blood alcohol level of less than 20 mg/100 ml
CPT/HCPCS: 36415; 71045; 80053; 80307; 82140; 83735; 84443; 84484; 85025; 85610; 85730; 87635; 93005; 94640; A9270; J3475; J3490; J7120; 93010; 96365; 96374; 96375; 99217; 99220; 99285-25; G0378; J7620-GY; U0002

== ENCOUNTER 2020-09-27 11:27 | Emergency (ER) | payer OTHER ==
[2020-09-27] MEDS ORDERED: Lidocaine 1% 30 ML SDV INJECT ONE (11:40)
[2020-09-27 11:43] VITALS: BP 163/70; PULSE 64
--- NOTE | 2020-10-02 11:50 | EDM.PDOC ---
ED HPI GENERAL MEDICAL PROBLEM - General Chief Complaint: Laceration Stated Complaint: CUT R ARM Time Seen by Provider: 09/27/20 11:30 Source of Information: Reports: Patient History Limitations: Reports: No Limitations - History of Present Illness INITIAL COMMENTS - FREE TEXT/NARRATIVE: Pt. presents to ER with complaints of laceration to R forearm. She states that this happened at work when she was cleaning the deep fryer. States tetanus is up to date. Denies any injury elsewhere. Onset Date: 09/27/20 Location: Reports: Upper Extremity, Right Right Lower Posterior Arm Pain Score (Numeric/FACES): 8 - Related Data Allergies Allergy/AdvReac Type Severity Reaction Status Date / Time No Known Allergies Allergy Verified 09/27/20 11:46 Home Meds: Home Meds Albuterol [Ventolin HFA] 2 puff INH Q4H PRN #1 puff 09/04/20 [Rx] LORazepam [Ativan] 0.5 mg PO TID PRN #20 tablet 09/04/20 [Rx] Magnesium Oxide 400 mg PO DAILY #5 tablet 09/04/20 [Rx] Potassium Chloride 20 meq PO BID #10 tablet.er 09/04/20 [Rx] Past Medical History - Past Health History Medical/Surgical History: Denies Medical/Surgical History - Past Surgical History GI Surgical History: Reports: Appendectomy Female Surgical History: Reports: Section Musculoskeletal Surgical History: Reports: Arthroscopic Knee Social & Family History - Family History Family Medical History: No Pertinent Family History - Tobacco Use Tobacco Use Status *Q: Unknown Ever Used Tobacco - Caffeine Use Caffeine Use: Reports: None ED ROS GENERAL - Review of Systems Review Of Systems: Comprehensive ROS is negative, except as noted in HPI. ED EXAM, GENERAL - Physical Exam Exam: See Below Exam Limited By: No Limitations General Appearance: Alert, WD/WN, No Apparent Distress Extremities: Normal Range of Motion, Normal Capillary Refill Skin Exam: Warm, Dry, Other (4 cm laceration noted to R forearm. No trauma noted to underlying structures.) ED GENERAL MEDICAL PROCEDURES - Laceration/Wound Repair Right Arm Lac/wound length in cm: 4 Appearance: Subcutaneous Distal NVT: Neuro & Vascular Intact Anesthetic Type: Local Local Anesthesia - Lidocaine (Xylocaine): 1% Plain Local Anesthetic Volume: 3cc Skin Prep: Chlorhexidine (Hibiciens), Saline Exploration/Debridement/Repair: Wound Explored, Explored to Base, Minimal Debridement Closed with: Sutures Suture Size: 4-0 # of Sutures: 4 Course - Vital Signs Last Recorded V/S: Last Vital Signs Temp 36.7 C 09/27/20 11:29 Pulse 64 09/27/20 11:29 Resp 18 09/27/20 11:29 BP 163/70 H 09/27/20 11:29 Pulse Ox 97 09/27/20 11:29 - Orders/Labs/Meds Meds: Medications Discontinued Medications Generic Name Dose Route Start Last Admin Trade Name Prashant PRN Reason Stop Dose Admin Lidocaine HCl 30 ml 09/27/20 11:40 09/27/20 11:45 Xylocaine-Mpf 1% INJECT 09/27/20 11:41 30 ml ONETIME ONE Administration Departure - Departure Time of Disposition: 20:05 Disposition: Home, Self-Care 01 Clinical Impression: Laceration - Discharge Information Instructions: Laceration Care, Adult Referrals: PCP,None [Primary Care Provider] - Forms: ED Department Discharge Additional Instructions: Sutures out in 12 days Keep dry for 48 hours. Keep open to air as much as possible to avoid infection. Return to ER if there is any redness, swelling or discharge from the area. Sepsis Event Note (ED) - Evaluation Sepsis Screening Result: No Definite Risk - Problem List Review Problem List Initiated/Reviewed/Updated: Yes - Assessment/Plan Plan: Sutures out in 12 days Keep dry for 48 hours. Keep open to air as much as possible to avoid infection. Return to ER if there is any redness, swelling or discharge from the area.
== END 2020-09-27 12:12 | disposition home or self-care (01) ==
LOC: VM.ED 11:27
DX: S51.811A Laceration without foreign body of right forearm, initial encounter (principal); W26.8XXA Contact with other sharp object(s), not elsewhere classified, initial encounter; Y93.G9 Activity, other involving cooking and grilling; Y99.0 Civilian activity done for income or pay
CPT/HCPCS: 12002; 99282; J2001; 99283

== ENCOUNTER 2022-02-06 14:33 | Emergency (ER) | payer SELFPAY ==
[2022-02-06] MEDS ORDERED: Sodium Chloride 0.9% 1,000 ML IV SCH (16:30)
[2022-02-06 19:11] VITALS: BP 162/89; PULSE 66
== END 2022-02-06 16:34 | disposition home or self-care (01) ==
LOC: VM.ED 14:33
DX: S93.402A Sprain of unspecified ligament of left ankle, initial encounter (principal); W18.41XA Slipping, tripping and stumbling without falling due to stepping on object, initial encounter
CPT/HCPCS: 73610-LT; 99283

== ENCOUNTER 2022-11-17 19:44 | Emergency (ER) | payer SELFPAY ==
[2022-11-17] MEDS ORDERED: GI Cocktail Oral Solution 30 ML PO ONE (20:04)
[2022-11-17 20:21] VITALS: PULSE 65
[2022-11-17 20:52] LABS: CHLORIDE,CL 107 mmol/L (98-107); SODIUM,NA 146 mmol/L (136-145)
[2022-11-17 21:00] LABS: ANION GAP 15.2 mmol/L (5-15); ESTIMATED GFR 103 mL/min (>=60)
[2022-11-17] MEDS ORDERED: Ketorolac 15 MG/ML SDV IVPUSH ONE (21:12)
[2022-11-17] MEDS ORDERED: Potassium Chloride 10 MEQ Tab.ER PO ONE (21:17)
[2022-11-17 21:43] VITALS: BP 125/59
== END 2022-11-17 21:36 | disposition home or self-care (01) ==
LOC: VM.ED 19:44
DX: K29.70 Gastritis, unspecified, without bleeding (principal); E87.6 Hypokalemia; F10.10 Alcohol abuse, uncomplicated; Y90.8 Blood alcohol level of 240 mg/100 ml or more; Z79.899 Other long term (current) drug therapy
CPT/HCPCS: 36415; 71046; 80053; 80307; 82150; 82550; 83615; 83690; 84484; 85025; 86140; 93005; 93010; 96374; 99285; 99285-25; A9270-GY; J1885

== ENCOUNTER 2023-01-08 13:11 | Emergency (ER) | payer SELFPAY ==
[2023-01-08 13:41] VITALS: BP 153/109; PULSE 92
[2023-01-08] MEDS ORDERED: Acetaminophen/HYDROcodone 325-10 MG Tab PO ONE (14:20)
[2023-01-08] MEDS ORDERED: Take Home: Acetaminophen/HYDROcodone 325-5 MG, 5 Tab Pack PO ONE (15:33)
== END 2023-01-08 15:45 | disposition home or self-care (01) ==
LOC: VM.ED 13:11
DX: S62.336A Displaced fracture of neck of fifth metacarpal bone, right hand, initial encounter for closed fracture (principal); J44.9 Chronic obstructive pulmonary disease, unspecified; W18.30XA Fall on same level, unspecified, initial encounter
CPT/HCPCS: 73130; 99283; A9270; 99282